=== PATIENT | female | born 1985 | race Caucasian/White ===

== ENCOUNTER 2025-06-26 15:08 | Emergency (ER) | payer MEDICAID, OTHER ==
[~2025-06-26] VITALS: Ht 177.8 cm; Wt 86.2 kg
[2025-06-26 15:13] VITALS: BP 138/90
[2025-06-26] MEDS: IV NORMAL SALINE 1000 ML BAG IV ONE (16:30)
[2025-06-26] MEDS ORDERED: IOHEXOL 350 100 ML INFUS..BTL ONE (16:44)
[2025-06-26 16:57] LABS: ASPARTATE AMINOTRANSFERASE 16 U/L (15-37); CREATININE 0.5 mg/dL (0.6-1.3); SODIUM SERUM 141 mmol/L (136-145); TOTAL PROTEIN, SERUM 7.5 g/dL (6.4-8.2); UREA NITROGEN, BLOOD 6 mg/dL (7-18)
[2025-06-26 17:03] LABS: PLATELET COUNT (AUTO) 255 K/uL (179-408); RED BLOOD CELL COUNT(AUTO) 4.43 MIL/uL (3.63-4.92); RED CELL DISTRIBUTION WIDTH 13.1 % (12.3-17.7); WHITE BLOOD COUNT (AUTO) 6.1 K/uL (3.8-11.8)
[2025-06-26] MEDS ORDERED: METOCLOPRAMIDE HCL 10 MG/2 ML VIAL ONE (17:18)
[2025-06-26] MEDS: METOCLOPRAMIDE HCL 10 MG/2 ML VIAL IV ONE (17:19)
[2025-06-26 18:38] LABS: *BILIRUBIN,URIN NEGATIVE (NEGATIVE); *BLOOD, URINE 1+ (NEGATIVE); *CLARITY,URINE CLEAR (CLEAR); *COLOR,URINE YELLOW (YELLOW); *KETONES,URINE 2+ (NEGATIVE); *PROTEIN,URINE NEGATIVE (NEGATIVE); *UROBILINOGEN,URINE 0.2 E.U./dl (NORMAL); LEUKOCYTE ESTERASE ,URINE NEGATIVE (NEGATIVE); NITRITE, URINE NEGATIVE (NEGATIVE); UGLUCOSE NEGATIVE (NEGATIVE)
[2025-06-26 18:43] LABS: SQUAMOUS EPITHELIAL CELL,UR FEW /HPF (NONE SEEN)
[2025-06-26] MEDS ORDERED: HYDR-3972 PO (19:18)
[2025-06-26] MEDS ORDERED: MORPHINE SULFATE 4 MG/1 ML DISP.SYRIN ONE (19:29)
[2025-06-26] MEDS: MORPHINE SULFATE 4 MG/1 ML DISP.SYRIN IV ONE (19:36)
[2025-06-26 20:06] VITALS: BP 130/84; O2SAT 98
== END 2025-06-26 19:53 | disposition home or self-care (01) ==
LOC: ER 15:08
DX: I67.1 Cerebral aneurysm, nonruptured (principal); G43.909 Migraine, unspecified, not intractable, without status migrainosus; Z86.2 Personal history of diseases of the blood and blood-forming organs and certain disorders involving the immune mechanism; R00.2 Palpitations
CPT/HCPCS: 99291; 70496; 96374; 71045; 96361; 96375; 80076; 80048; 81001; 85025; 85730; 84484; 84702; 36415; 70498; 93005; 70450; J2765; Q9967; J2270; J7040; A4606; A4663